=== PATIENT | male | born 1955 | race Caucasian/White ===

== ENCOUNTER 2020-01-17 18:19 | Outpatient (REF) | payer OTHER, SELFPAY ==
[2020-01-17 22:18] LABS: ALT 21 U/L (16-63); AST 17 U/L (15-37); Albumin 4.2 g/dL (3.4-5.0); Alkaline Phosphatase 93 U/L (46-116); Anion Gap 8.3 mmol/L (3-11); BUN 26 mg/dL (7-18); Bilirubin, Total 0.4 mg/dL (0.2-1.0); CO2 26.7 mmol/L (21.0-32.0); CREATININE 1.22 mg/dL (0.70-1.30); Calcium 9.6 mg/dL (8.5-10.1); Chloride 101 mmol/L (98-107); Cholesterol 268 mg/dL (<200); Estimated GFR 59.62 (mL/min/1.73m2); Glucose 87 mg/dL (74-106); Potassium 4.2 mmol/L (3.5-5.1); Sodium 136 mmol/L (136-145); TSH (W/Ref FT4) 2.86 uIU/mL (0.36-3.74); Total Protein 7.2 g/dL (6.4-8.2); Triglyceride 277 mg/dL (<150); Vitamin B12 795 pg/mL (193-986)
[2020-01-17 22:36] LABS: Calculated LDL 165 mg/dL (<100); HDL Cholesterol 48 mg/dL (40-60)
== END 2020-01-17 18:39 ==
LOC: NCHCN 18:19
PROVIDERS: PCP Nurse Practitioner Family; Visit Provider Nurse Practitioner Family
DX: K21.9 Gastro-esophageal reflux disease without esophagitis (principal); E83.52 Hypercalcemia; I10 Essential (primary) hypertension; E78.5 Hyperlipidemia, unspecified; N40.1 Benign prostatic hyperplasia with lower urinary tract symptoms; M54.5 Low back pain; L40.9 Psoriasis, unspecified; N13.8 Other obstructive and reflux uropathy
CPT/HCPCS: 80053; 80061; 82607; 83735; 84443

== ENCOUNTER 2020-01-30 00:28 | Outpatient (CLI) | payer OTHER, SELFPAY ==
--- NOTE | 2020-01-30 | DI.RAD_ITS ---
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 COMPARISON: No exams were available for comparison FINDINGS: MEDIASTINUM: Normal. HEART: Normal. PULMONARY VASCULATURE: Normal. LUNGS: Clear. PLEURAL SPACE: No pleural effusion or pneumothorax. BONE:Within normal limits for the patient's age. OTHER FINDINGS:Normal. IMPRESSION: No acute pulmonary findings. DATA REPOSITORY: RADIATION DOSE DELIVERED:
== END 2020-01-30 00:48 ==
PROVIDERS: PCP Nurse Practitioner Family; Visit Provider Nurse Practitioner Family
DX: D86.0 Sarcoidosis of lung (principal); Z79.52 Long term (current) use of systemic steroids
CPT/HCPCS: 71046

== ENCOUNTER 2020-03-07 09:08 | Outpatient (REF) | payer OTHER, SELFPAY ==
[2020-03-07 22:57] LABS: ALT 25 U/L (16-63); AST 17 U/L (15-37); Albumin 3.9 g/dL (3.4-5.0); Alkaline Phosphatase 85 U/L (46-116); Anion Gap 9.1 mmol/L (3-11); BUN 23 mg/dL (7-18); Bilirubin, Total 0.4 mg/dL (0.2-1.0); CO2 26.9 mmol/L (21.0-32.0); CREATININE 1.33 mg/dL (0.70-1.30); Calcium 8.9 mg/dL (8.5-10.1); Calculated LDL 121 mg/dL (<100); Chloride 106 mmol/L (98-107); Cholesterol 182 mg/dL (<200); Glucose 97 mg/dL (74-106); HDL Cholesterol 42 mg/dL (40-60); Potassium 4.5 mmol/L (3.5-5.1); Sodium 142 mmol/L (136-145); Total Protein 6.7 g/dL (6.4-8.2); Triglyceride 99 mg/dL (<150)
== END 2020-03-07 09:28 ==
LOC: NCHCN 09:08
PROVIDERS: PCP Nurse Practitioner Family; Visit Provider Nurse Practitioner Family
DX: E78.5 Hyperlipidemia, unspecified (principal); I10 Essential (primary) hypertension; E83.52 Hypercalcemia
CPT/HCPCS: 80053; 80061

== ENCOUNTER 2020-03-29 01:15 | Outpatient (CLI) | payer OTHER, SELFPAY ==
--- NOTE | 2020-03-29 | DI.DEXA_ITS ---
EXAM: XR DEXA BONE DENSITY W/WO CARI CLINICAL HISTORY: SARCOIDOSIS,D86.0,AS400 ANALYST,Z79.51,SCREENING FOR OSTEOPOROSIS TECHNIQUE: COMPARISON: No exams were available for comparison FINDINGS: DEXA scan was performed according to the usual protocol. Please see the accompanying data sheets. Findings for lumbar spine scanning are T-score -0.9. Findings for left hip scanning are T-score -0.1 with left femoral neck T-score -1.3. Findings for left forearm scanning are T-score -2.1. IMPRESSION: Findings consistent with osteopenia according to the WHO criteria. The lateral vertebral scanogram shows no evidence of a vertebral compression fracture. RADIATION DOSE DELIVERED: Total DLP
== END 2020-03-29 01:35 ==
PROVIDERS: PCP Nurse Practitioner Family; Visit Provider Nurse Practitioner Family
DX: M85.89 Other specified disorders of bone density and structure, multiple sites (principal); D86.0 Sarcoidosis of lung; Z79.51 Long term (current) use of inhaled steroids
CPT/HCPCS: 77080

== ENCOUNTER 2020-04-19 16:03 | Outpatient (REF) | payer OTHER, SELFPAY ==
[2020-04-19 14:04] LABS: Anion Gap 11.8 mmol/L (3-11); BUN 25 mg/dL (7-18); CO2 25.2 mmol/L (21.0-32.0); CREATININE 1.2 mg/dL (0.70-1.30); Calcium 9.6 mg/dL (8.5-10.1); Chloride 105 mmol/L (98-107); Glucose 105 mg/dL (74-106); Potassium 4.1 mmol/L (3.5-5.1); Sodium 142 mmol/L (136-145)
== END 2020-04-19 16:04 | disposition home or self-care (01) ==
LOC: NCHCN 16:03
PROVIDERS: PCP Nurse Practitioner Family; Visit Provider Nurse Practitioner Family
DX: M85.88 Other specified disorders of bone density and structure, other site (principal); K21.9 Gastro-esophageal reflux disease without esophagitis; E83.52 Hypercalcemia; I12.9 Hypertensive chronic kidney disease with stage 1 through stage 4 chronic kidney disease, or unspecified chronic kidney disease; N18.2 Chronic kidney disease, stage 2 (mild); M54.5 Low back pain; E78.5 Hyperlipidemia, unspecified; D86.0 Sarcoidosis of lung
CPT/HCPCS: 80048

== ENCOUNTER 2020-05-03 00:55 | Outpatient (CLI) | payer OTHER, SELFPAY ==
--- NOTE | 2020-05-03 10:35 | DI.MRI_ITS ---
EXAM: MR LUMBAR SPINE WO CLINICAL HISTORY: LOW BACK PAIN,M54.5,SCIATICA,M54.30. TECHNIQUE: Multiplanar multisequence MRI of the Lumbar spine was performed. COMPARISON: No exams were available for comparison FINDINGS: Five lumbar vertebrae are presumed. Conus medullaris is at normal level. There is no evidence of conus mass nor subjacent clumping of in trathecal nerve roots to suggest arachnoiditis. The distal thecal sac appears unremarkable.There is no evidence of Tarlov intrasacral cysts nor other significant findings within the sacral canal Bones:There are no fractures nor ominous osseous lesions in the lumbar vertebral bodies and visualize d sacrum. There are multiple benign intraosseous hemangiomas evident in numerous vertebral bodies. There are no lytic osseous lesions. With respect to the individual levels... T12-L1: Unremarkable L1-2: Normal disc height and signal. Mild Schmorl's node invagination noted in the inferior endplate of L1, not associated with bone edema. No disc herniation nor central canal stenosis.No foraminal s tenosis L2-3: Significant decreased disc height and small anterior osteophytes. Posteriorly there is mild sy mmetrical annular bulging without a dominant disc herniation. The annular bulging slightly flattens the anterior aspect of the thecal sac but there is no prominent central canal stenosis. Also no sign ificant foraminal stenosis, this despite the fact that the annular bulging extends into the floor of the exiting neural foramina bilaterally.There is no significant facet arthropathy at this level. No significant ligamentum flavum hypertrophy. L3-4: Normal disc height. However, there is also broad annular bulging evident at this level which i s not associated with central spinal canal stenosis. The bulging annulus extends into the floor of t he exiting left neural foramen at this level resulting in mild foraminal stenosis. There is less bul ging into the floor of the exiting right neural foramen and there is no significant right-sided jasper inal stenosis at this level. Mild degenerative facet joint changes. L4-5: Minimal decreased disc height. Relatively preserved disc hydration signal. There is annular b ulging also evident at this level, and although there is no prominent central canal stenosis, there i s significant left-sided foraminal stenosis at this level due to asymmetric bulging of the annulus in to the exiting left neural foramen +asymmetric facet arthropathy on the left side. No significant li gamentum flavum mitral tree at this level. L5-S1: Preserved disc height and signal. There is relatively symmetrical annular bulging, most promi nent central subligamentous which contacts the thecal sac but there is no true central spinal canal s tenosis at this level. There is mild narrowing of the exiting left neural foramen and moderate narro wing of the exiting right neural foramen at this level, this related to degenerative facet joint membreno ges. Soft tissues: paraspinal soft tissues appear unremarkable. IMPRESSION: 1. Findings as described individual level above. 2. The most significant findings appear to be foraminal stenosis at the L4-5 and L5-S1 levels. At th e L4-5 level the foraminal stenosis is asymmetric-more prominent on the left side. At L5-S1 level th e foraminal stenosis is slightly more prominent on the right side. There is no true central spinal c anal stenosis in the lumbosacral spine. 3. There are multiple benign intraosseous hemangiomas in all of the lumbar vertebrae. However, there are no ominous lytic osseous lesions evident. DATA REPOSITORY:
== END 2020-05-03 00:56 ==
LOC: DI 00:55
PROVIDERS: PCP Nurse Practitioner Family; Visit Provider Nurse Practitioner Family
DX: M54.40 Lumbago with sciatica, unspecified side (principal); M99.73 Connective tissue and disc stenosis of intervertebral foramina of lumbar region
CPT/HCPCS: 72148

== ENCOUNTER 2020-07-10 14:56 | Outpatient (CLI) | payer OTHER, SELFPAY ==
--- NOTE | 2020-07-10 06:00 | DI.RAD_ITS ---
EXAM: XR PAIN CLINIC LUMBAR SP 2V CLINICAL HISTORY: Dx:Lumbar Spondylosis TECHNIQUE: 2D and realtime digital imaging was performed. Radiologist not present. CONTRAST MATERIAL: None. COMPARISON: No exams were available for comparison FINDINGS: Fluoroscopy was provided for pain management therapy. Images reveal placement of right-side needles L4-5-S1 levels for medial branch blocks. Please refer to procedure report or details. Fluoro time: 54 Cumulative dose: Ka,r=15.63 mGy IMPRESSION: RADIATION DOSE DELIVERED:
[2020-07-10 15:08] VITALS: BP 137/87; PULSE 74; RESP 16; TEMP 36.9; O2SAT 98
--- NOTE | 2020-07-10 15:43 | PDOC.PAIN_ITS ---
Pain Clinic Procedure Note Procedure Note Procedure Note: Lumbar/Sacral Medial Branch Blocks HILARIO GARCIA has been referred to the [facility] for lumbar/sacral medial branch blocks. Pre-operative diagnosis: lumbar spondylosis Post-operative diagnosis: same as above COMMENTS: patient has predominantly right sided lowb back pain that is worse with physical activity. He works in [employer] and notes bending and twisting of his back aggravates his symptoms. He reports average pain level to be at least 5-6 out of 10 and impairs function. He was evaluated by Ms Kassie Aguilar APRN in clinic and referred for diagnostic right sided lumbar medial branch nerve block. Patient was interviewed and the medical record reviewed. There were no medical, pharmacologic, radiographic or other structural contraindications to attempting fluoroscopically guided local anesthetic lumbar/sacral medial branch blocks. Risks and expected side effects as well as potential benefit of the procedure were reviewed and voiced concerns addressed. The printed consent form was signed and witnessed. Standard time-out procedure was performed. Patient was placed in the prone position on the fluoroscopy table and automated blood pressure cuff and pulse oximeter applied. The skin entry points for ap proaching the anatomic target points of the segmental medial branches of right L3, L4, L5-DR were identified with anfluoroscopy and marked. Following thorough Chlorhexadine preparation of the skin and draping and 1% lidocaine infiltration of the skin entry points and subcutaneous tissues, a 22 gauge spinal needle was placed under fluoroscopic guidance down on to the target point for each respective segmental medial branch.Position was confirmed in A/P, oblique and lateral views with 0.25ml of omnipaque 240. Then using this method 0.5ml 0.5% Bupivocaine was injected. Vital signs were stable throughout the procedure and were as recorded in the docflowsheet by the nursing staff. Follow up plans and appointments were discussed and was instructed to keep careful note of how the usual pain was modified by these injections. Specifically was asked to keep a pain diary for the next 24 hours using a numeric pain scale of 0-10 and report these results at the follow-up visit. Post procedure instruction was given as documented in the nursing documentation and having met discharge criteria. Patient was discharged from the [facility]. Based on the medial branches blocked today, if the patient has adequate relief and we are able to proceed to radiofrequency ablation, the treatment should result in the denervation of the right L4/5 and L5/S1 facets. We would expect to denervate a total of 2 facets during the radiofrequency ablation. COMMENTS: patient reports pre-procedure VAS score 5/10 and post-procedure pain level to be 0 out of 10. I jose alejandro performed the entire procedure. Juan Zelaya MD Pain Management CC: Debra Jordan
[2020-07-10 15:58] VITALS: BP 133/72; PULSE 68; RESP 16; O2SAT 96
[2020-07-10] MEDS: Omnipaque 240 MG/ML 50 ML BTL IJ (15:59)
[2020-07-10] MEDS: Bupivacaine 0.5% Pres-Free 10 ML VIAL IJ (15:59)
== END 2020-07-10 14:57 | disposition home or self-care (01) ==
LOC: PC 14:57
PROVIDERS: PCP Nurse Practitioner Family; Visit Provider Internal Medicine
DX: M47.816 Spondylosis without myelopathy or radiculopathy, lumbar region (principal)
CPT/HCPCS: 64493; 64494; 72100; Q9967

== ENCOUNTER 2020-08-07 14:15 | Outpatient (CLI) | payer OTHER, SELFPAY ==
[2020-08-07 14:19] VITALS: BP 122/73; PULSE 74; RESP 17; TEMP 36.6; O2SAT 97
--- NOTE | 2020-08-07 15:12 | DI.RAD_ITS ---
Exam(s) XR PAIN CLINIC LUMBAR SP 2V EXAM: XR PAIN CLINIC LUMBAR SP 2V CLINICAL HISTORY: Dx:Lumbar Spondylosis. TECHNIQUE: Fluoroscopy was provided for the referring physician for guidance with performing injecti on procedure. COMPARISON: No exams were available for comparison FINDINGS: Please see procedure note for details. RADIATION DOSE DELIVERED: ira Perla=9.68 mGy
[2020-08-07] MEDS: Omnipaque 240 MG/ML 50 ML BTL IJ (15:16)
[2020-08-07] MEDS: Lidocaine 2% Pres-Free 5 ML VIAL IJ (15:16)
[2020-08-07 15:17] VITALS: BP 148/77; PULSE 75; RESP 14; O2SAT 95
--- NOTE | 2020-08-07 15:20 | PDOC.PAIN_ITS ---
Pain Clinic Procedure Note Procedure Note Procedure Note: Lumbar/Sacral Medial Branch Blocks HILARIO GARCIA has been referred to the [facility] for lumbar/sacral medial branch blocks. Pre-operative diagnosis: lumbar spondylosis Post-operative diagnosis: same as above COMMENTS: patient has predominantly right sided lowb back pain that is worse with physical activity. He works in [employer] and notes bending and twisting of his back aggravates his symptoms. He reports average pain level to be at least 6 out of 10 and impairs function. Patient was interviewed and the medical record reviewed. There were no medical, pharmacologic, radiographic or other structural contraindications to attempting fluoroscopically guided local anesthetic lumbar/sacral medial branch blocks. Risks and expected side effects as well as potential benefit of the procedure were reviewed and voiced concerns addressed. The printed consent form was signed and witnessed. Standard time-out procedure was performed. Patient was placed in the prone position on the fluoroscopy table and automated blood pressure cuff and pulse oximeter applied. The skin entry points for approaching the anatomic target points of the segmental medial branches of right L3, L4, L5-DR were identified with anfluoroscopy and marked. Following thorough Chlorhexadine preparation of the skin and draping and 1% lidocaine infiltration of the skin entry points and subcutaneous tissues, a 22 gauge spinal needle was placed under fluoroscopic guidance down on to the target point for each respective segmental medial branch.Position was confirmed in A/P, oblique and lateral views with 0.25ml of omnipaque 240. Then using this method 0.5ml 1% lidociane was injected. Vital signs were stable throughout the procedure and were as recorded in the docflowsheet by the nursing staff. Follow up plans and appointments were discussed and was instructed to keep careful note of how the usual pain was modified by these injections. Specifically was asked to keep a pain diary for the next 24 hours using a nume stephanie pain scale of 0-10 and report these results at the follow-up visit. Post procedure instruction was given as documented in the nursing documentation and having met discharge criteria. Patient was discharged from the [facility]. Based on the medial branches blocked today, if the patient has adequate relief and we are able to proceed to radiofrequency ablation, the treatment should result in the denervation of the right L4/5 and L5/S1 facets. We would expect to denervate a total of 2 facets during the radiofrequency ablation. COMMENTS: patient reports pre-procedure VAS score 6/10 and post-procedure pain level to be 0 out of 10. Darcie blount performed the entire procedure. Juan Zelaya MD Pain Management CC: Debra Jordan
== END 2020-08-07 14:16 | disposition home or self-care (01) ==
LOC: PC 14:16
PROVIDERS: PCP Nurse Practitioner Family; Visit Provider Internal Medicine
DX: M47.816 Spondylosis without myelopathy or radiculopathy, lumbar region (principal)
CPT/HCPCS: 64493; 64494; 72100; Q9967

== ENCOUNTER 2020-09-11 14:28 | Outpatient (CLI) | payer OTHER, SELFPAY ==
--- NOTE | 2020-09-11 06:00 | DI.RAD_ITS ---
Exam(s) XR PAIN CLINIC LUMBAR SP 2V EXAM: XR PAIN CLINIC LUMBAR SP 2V CLINICAL HISTORY: Dx: Lumbar Spondylosis TECHNIQUE: 2D and realtime digital imaging was performed. Radiologist not present. CONTRAST MATERIAL: None. COMPARISON: No exams were available for comparison FINDINGS: Fluoroscopy was provided for pain management therapy. Please refer to the procedure report for comple te details. There are no submitted images. Cumulative dose: Ka,r=14.45 mGy IMPRESSION: RADIATION DOSE DELIVERED:
[2020-09-11 15:06] VITALS: BP 142/89; PULSE 76; RESP 16; TEMP 36.8; O2SAT 98
--- NOTE | 2020-09-11 15:31 | PDOC.PAIN ---
Pain Clinic Procedure Note Procedure Note Procedure Note: Right Lumbar Radiofrequency with Coolief Machine PROCEDURE NOTE Date of Service: September 11, 2020 Patient: HILARIO GARCIA Provider: Juan Zelaya MD Pre Operative Diagnosis: lumbar spondylosis Post Operative Diagnosis: same as above PROCEDURE: Radiofrequency Ablation of medial branches - Right L3, L4, L5-DR HILARIO GARCIA was brought into the fluoroscopy suite and positioned into the prone position on the fluoroscopy table and allowed to adjust to a position of comfort. A grounding pad was placed on the left thigh. The lumbar region was widely prepped with a chloraprep solution, allowed to air dry and draped in standard sterile surgical fashion. Local anesthesia was provided by 10mL of 1% lidocaine delivered with a 25g needle. A 17g 100mm radiofrequency introducer needle was placed to the planned anatomic targets guided with intermittent fluoroscopy with a perpendicular approach to terminally place at the junction of the superior articular process and the transverse process of the right L3, L4, L5-DR and the base of the sacral ala on the right for the L5 medial branch nerve. The stylets were removed and radiofrequency probes with a 4mm active tip were then inserted. Needle tip position of the probes was verified in the AP, oblique, and lateral views. At each site, the medial branch nerve was stimulated at 2 Hz to a maximum 1-2 volts determined to finalize safe needle and electrode placement. The patient was awake and responsive during this portion of the procedure. Each target was anesthetized with 1 mL of 2% lidocaine for anesthesia for lesioning and then each target was lesioned at 80 degrees Celsius for 2 minutes and 30 seconds. Tissue impedences were noted to be between 250 and 500 Ohms. Electrodes and needles were then removed and bandages placed over the needle placement sites, the patient then returned to the supine position on a stretcher and transported to the recovery room without hemodynamic, neurologic, or allergic reactions. Fluoroscopic images were printed for hard copy recording and digitally archived. POST PROCEDURE EVALUATION: IMPRESSION: 1. patient tolerated procedure well 2. received 1mg of IV versed and 25mcg of IV fentanyl 3. this will result in denervation of right L4/5 and L5/S1 facets 4. total of 2 facets were treated Follow up plans and appointments were discussed with the HILARIO . Post procedure instruction was given as documented in nursing documentation and having met discharge criteria, HILARIO was discharged from the [facility]. COMMENTS: No complications. F/U with our office as needed. I personally performed this entire procedure. Juan Zelaya MD Attending Physician
[2020-09-11] MEDS: Lactated Ringers 1,000 ML 80 ML IV (15:44)
[2020-09-11] MEDS: fentaNYL 100 MCG/2 ML VIAL IVP (15:52)
[2020-09-11] MEDS: Midazolam 2 MG/2 ML VIAL IVP (15:53)
[2020-09-11 16:11] VITALS: BP 143/81; PULSE 69; RESP 18; O2SAT 95
[2020-09-11] MEDS: Bupivacaine 0.5% Pres-Free 10 ML VIAL IJ (16:33)
[2020-09-11] MEDS: Lidocaine 1% Pres-Free 5 ML VIAL IJ (16:35)
[2020-09-11] MEDS: Lidocaine 2% Pres-Free 5 ML VIAL IJ (16:36)
[2020-09-11] MEDS: methylPREDNISolone ACETATE 40 MG/ML VIAL IJ (16:36)
== END 2020-09-11 14:29 | disposition home or self-care (01) ==
LOC: PC 14:29
PROVIDERS: PCP Nurse Practitioner Family; Visit Provider Internal Medicine
DX: M47.816 Spondylosis without myelopathy or radiculopathy, lumbar region (principal)
CPT/HCPCS: 64635; 64636; 72100; J1030; J2250; J3010

== ENCOUNTER 2020-09-21 09:20 | Outpatient (CLI) | payer OTHER, SELFPAY ==
--- NOTE | 2020-09-21 08:30 | DI.RAD_ITS ---
Exam(s) XR KNEE LT 3V AP,LAT,ANGIE EXAM: XR KNEE LT 3V AP,LAT,ANGIE CLINICAL HISTORY: knee pain. TECHNIQUE: 2D digital imaging was performed. COMPARISON: No exams were available for comparison FINDINGS: BONES: No acute fracture is present. No bony destructive lesion is seen. Minimal periarticular spurr ing. JOINTS: The knee is normally aligned. No joint effusion is seen. No significant joint space narrowi ng. SOFT TISSUE: Normal. IMPRESSION: Minimal degenerative changes. DATA REPOSITORY: RADIATION DOSE DELIVERED:
--- NOTE | 2020-09-21 08:30 | DI.RAD_ITS ---
Exam(s) XR KNEE RT 3V AP,LAT,ANGIE EXAM: XR KNEE RT 3V AP,LAT,ANGIE CLINICAL HISTORY: knee pain. TECHNIQUE: 2D digital imaging was performed. COMPARISON: CR XR KNEE LT 3V AP,LAT,ANGIE from 09/21/2020 FINDINGS: BONES: No acute fracture is present. No bony destructive lesion is seen. JOINTS: The knee is normally aligned. No joint effusion is seen. There is mild spurring at the articu lar aspect of the patella. No significant joint space narrowing. SOFT TISSUE: Normal. IMPRESSION: Mild degenerative changes. DATA REPOSITORY: RADIATION DOSE DELIVERED:
== END 2020-09-21 09:21 | disposition home or self-care (01) ==
LOC: DIORS 09:20
PROVIDERS: PCP Nurse Practitioner Family; Referring Provider Nurse Practitioner Family; Visit Provider Student in an Organized Health Care Education/Training Program
DX: M25.561 Pain in right knee (principal); M17.12 Unilateral primary osteoarthritis, left knee; M17.11 Unilateral primary osteoarthritis, right knee; M25.562 Pain in left knee
CPT/HCPCS: 73562; 99203

== ENCOUNTER 2021-01-21 10:42 | Outpatient (REF) | payer MEDICARE, SELFPAY ==
[2021-01-21 16:59] LABS: ALT 28 U/L (16-63); AST 15 U/L (15-37); Albumin 3.9 g/dL (3.4-5.0); Alkaline Phosphatase 100 U/L (46-116); Anion Gap 8.2 mmol/L (3-11); BUN 23 mg/dL (7-18); Bilirubin, Total 0.4 mg/dL (0.2-1.0); CO2 29.8 mmol/L (21.0-32.0); CREATININE 1.2 mg/dL (0.70-1.30); Calcium 9.3 mg/dL (8.5-10.1); Chloride 107 mmol/L (98-107); Glucose 90 mg/dL (74-106); Potassium 5.3 mmol/L (3.5-5.1); Sodium 145 mmol/L (136-145); Total Protein 6.9 g/dL (6.4-8.2); Vitamin B12 904 pg/mL (193-986)
[2021-01-21 22:37] LABS: Bilirubin Negative (Negative); Blood Trace-intact (Negative); Clarity Clear (Clear); Glucose Negative (Negative); Ketones Negative (Negative); Leukocyte Esterase Negative (Negative); Nitrite Negative (Negative); Specific Gravity 1.025 (1.005-1.025); Urobilinogen 0.2 EU/dL (Up TO 0.2)
[2021-01-21 22:48] LABS: COMMENT (LAB VIEW ONLY) 119.41 mg/dL; Microalb ug/mg Crea 8.7 ug/mg Cr
[2021-01-21 22:52] LABS: Bacteria Rare HPF (Negative); C & S Indicated? No; Casts Negative LPF (Negative); Crystals Negative HPF (Negative); Epithelial Cells Rare HPF (Negative); Mucus Negative (Negative); WBC 0-2 HPF (0-5)
[2021-01-23 08:53] LABS: Calcium (Random Urine) 6.8 mg/dL (See Note)
== END 2021-01-21 10:43 | disposition home or self-care (01) ==
LOC: NCHCN 10:42
PROVIDERS: PCP Nurse Practitioner Family; Visit Provider Nurse Practitioner Family
DX: N18.2 Chronic kidney disease, stage 2 (mild) (principal); N20.9 Urinary calculus, unspecified; I10 Essential (primary) hypertension; E78.5 Hyperlipidemia, unspecified; K21.9 Gastro-esophageal reflux disease without esophagitis; M85.88 Other specified disorders of bone density and structure, other site; I26.99 Other pulmonary embolism without acute cor pulmonale
CPT/HCPCS: 80053; 81003; 81015; 82043; 82340; 82570; 82607; 83735

== ENCOUNTER 2021-02-12 11:15 | Outpatient (REF) | payer MEDICARE, SELFPAY ==
[2021-02-12 16:40] LABS: Potassium 4.7 mmol/L (3.5-5.1)
== END 2021-02-12 11:16 | disposition home or self-care (01) ==
LOC: NCHCN 11:15
PROVIDERS: PCP Nurse Practitioner Family; Visit Provider Nurse Practitioner Family
DX: E87.5 Hyperkalemia (principal)
CPT/HCPCS: 84132

== ENCOUNTER 2022-02-04 18:34 | Outpatient (REF) | payer MEDICARE, SELFPAY ==
[2022-02-04 15:27] LABS: Anion Gap 8.1 mmol/L (3-11); BUN 21 mg/dL (7-18); CO2 27.9 mmol/L (21.0-32.0); CREATININE 1.2 mg/dL (0.70-1.30); Calcium 9.5 mg/dL (8.5-10.1); Calculated LDL 195 mg/dL (<100); Chloride 103 mmol/L (98-107); Cholesterol 273 mg/dL (<200); Estimated GFR 66.28 (mL/min/1.73m2); Glucose 91 mg/dL (74-106); HDL Cholesterol 50 mg/dL (40-60); Potassium 4.2 mmol/L (3.5-5.1); Sodium 139 mmol/L (136-145); Triglyceride 144 mg/dL (<150)
[2022-02-04 17:19] LABS: Vitamin D 25 Total 57.5 ng/mL (30-100)
== END 2022-02-04 18:35 | disposition home or self-care (01) ==
LOC: NCHCN 18:34
PROVIDERS: PCP Nurse Practitioner Family; Visit Provider Nurse Practitioner Family
DX: E66.9 Obesity, unspecified (principal); M85.80 Other specified disorders of bone density and structure, unspecified site; K21.9 Gastro-esophageal reflux disease without esophagitis; N18.2 Chronic kidney disease, stage 2 (mild); E78.5 Hyperlipidemia, unspecified; M85.88 Other specified disorders of bone density and structure, other site; I10 Essential (primary) hypertension
CPT/HCPCS: 80048; 80061; 82306

== ENCOUNTER 2022-04-01 09:26 | Outpatient (REF) | payer MEDICARE, SELFPAY ==
[2022-04-01 15:27] LABS: Calculated LDL 129 mg/dL (<100); Cholesterol 203 mg/dL (<200); HDL Cholesterol 53 mg/dL (40-60); Triglyceride 107 mg/dL (<150)
== END 2022-04-01 09:27 | disposition home or self-care (01) ==
LOC: NCHCN 09:26
PROVIDERS: PCP Nurse Practitioner Family; Visit Provider Nurse Practitioner Family
DX: I10 Essential (primary) hypertension (principal); E78.5 Hyperlipidemia, unspecified; N18.2 Chronic kidney disease, stage 2 (mild)
CPT/HCPCS: 80061

== ENCOUNTER 2022-04-04 10:36 | Outpatient (REF) | payer MEDICARE, SELFPAY ==
[2022-04-04 14:43] LABS: ALT 22 U/L (16-63); AST 18 U/L (15-37); Albumin 3.9 g/dL (3.4-5.0); Alkaline Phosphatase 92 U/L (46-116); Anion Gap 8.9 mmol/L (3-11); BUN 24 mg/dL (7-18); Bilirubin, Total 0.6 mg/dL (0.2-1.0); CO2 28.1 mmol/L (21.0-32.0); CREATININE 1.2 mg/dL (0.70-1.30); Calcium 9.3 mg/dL (8.5-10.1); Chloride 106 mmol/L (98-107); Estimated GFR 65.87 (mL/min/1.73m2); Glucose 105 mg/dL (74-106); Potassium 4.4 mmol/L (3.5-5.1); Sodium 143 mmol/L (136-145); Total Protein 6.7 g/dL (6.4-8.2)
== END 2022-04-04 10:37 | disposition home or self-care (01) ==
LOC: NCHCN 10:36
PROVIDERS: PCP Nurse Practitioner Family; Visit Provider Nurse Practitioner Family
DX: I10 Essential (primary) hypertension (principal); E87.5 Hyperkalemia; E66.8 Other obesity
CPT/HCPCS: 80053

== ENCOUNTER 2023-02-02 12:45 | Outpatient (REF) | payer MEDICARE, SELFPAY ==
[2023-02-02 15:49] LABS: ALT 21 U/L (16-63); AST 17 U/L (15-37); Alkaline Phosphatase 91 U/L (46-116); Anion Gap 7.2 mmol/L (3-11); BUN 25 mg/dL (7-18); Bilirubin, Total 0.6 mg/dL (0.2-1.0); CO2 28.8 mmol/L (21.0-32.0); CREATININE 1.2 mg/dL (0.70-1.30); Calcium 10.2 mg/dL (8.5-10.1); Calculated LDL 158 mg/dL (<100); Chloride 103 mmol/L (98-107); Cholesterol 244 mg/dL (<200); Estimated GFR 65.87 (mL/min/1.73m2); Glucose 93 mg/dL (74-106); HDL Cholesterol 49 mg/dL (40-60); Potassium 4.5 mmol/L (3.5-5.1); Sodium 139 mmol/L (136-145); Total Protein 7.4 g/dL (6.4-8.2); Triglyceride 186 mg/dL (<150); Vitamin B12 535 pg/mL (193-986)
[2023-02-04 18:47] LABS: PSA, Screening 0.2 ng/mL (<=4.5)
== END 2023-02-02 12:46 | disposition home or self-care (01) ==
LOC: NCHCN 12:45
PROVIDERS: PCP Nurse Practitioner Family; Visit Provider Nurse Practitioner Family
DX: I10 Essential (primary) hypertension (principal); N40.1 Benign prostatic hyperplasia with lower urinary tract symptoms; E78.5 Hyperlipidemia, unspecified; K21.9 Gastro-esophageal reflux disease without esophagitis; Z12.5 Encounter for screening for malignant neoplasm of prostate
CPT/HCPCS: 80053; 80061; 84153; 82607; 83735

== ENCOUNTER 2023-03-17 14:37 | Outpatient (REF) | payer MEDICARE, SELFPAY ==
[2023-03-17 15:35] LABS: ALT 28 U/L (16-63); AST 16 U/L (15-37); Albumin 3.7 g/dL (3.4-5.0); Alkaline Phosphatase 93 U/L (46-116); Anion Gap 6.9 mmol/L (3-11); BUN 28 mg/dL (7-18); Bilirubin, Total 0.6 mg/dL (0.2-1.0); CO2 29.1 mmol/L (21.0-32.0); CREATININE 1.4 mg/dL (0.70-1.30); Calcium 9.6 mg/dL (8.5-10.1); Calculated LDL 155 mg/dL (<100); Chloride 104 mmol/L (98-107); Cholesterol 234 mg/dL (<200); Estimated GFR 54.41 (mL/min/1.73m2); Glucose 109 mg/dL (74-106); HDL Cholesterol 52 mg/dL (40-60); Potassium 4.6 mmol/L (3.5-5.1); Sodium 140 mmol/L (136-145); Total Protein 6.8 g/dL (6.4-8.2); Triglyceride 135 mg/dL (<150)
== END 2023-03-17 14:38 | disposition home or self-care (01) ==
LOC: NCHCN 14:37
PROVIDERS: PCP Nurse Practitioner Family; Visit Provider Nurse Practitioner Family
DX: I10 Essential (primary) hypertension (principal)
CPT/HCPCS: 80053; 80061

== ENCOUNTER → 2023-03-27 01:15 | Outpatient (CLI) | payer MEDICARE, SELFPAY ==
--- NOTE | 2023-03-27 11:02 | DI.RAD_ITS ---
Exam(s) XR WRIST LT COMPLETE EXAM: XR WRIST LT COMPLETE CLINICAL HISTORY: PAIN LEFT WRIST M25.532. TECHNIQUE: 2D digital imaging was performed of the left wrist. Three images were obtained. PA, obl ique and lateral views were obtained. COMPARISON: No exams were available for comparison FINDINGS: BONES: No acute fracture is present. No bony destructive lesion is seen. JOINTS: The carpal bones are normally aligned. Moderate joint space narrowing and osteophytes are see n at the 1st CMC joint. The joint spaces are otherwise well maintained. SOFT TISSUE: Normal. IMPRESSION: Moderate degenerative changes at the 1st CMC joint. DATA REPOSITORY: RADIATION DOSE DELIVERED:
== END ==
PROVIDERS: PCP Nurse Practitioner Family; Visit Provider Family Medicine
DX: M18.2 Bilateral post-traumatic osteoarthritis of first carpometacarpal joints (principal)
CPT/HCPCS: 73110

== ENCOUNTER → 2023-04-20 08:51 | Outpatient (BNVA) | payer MEDICARE, SELFPAY | PROVIDERS: PCP Nurse Practitioner Family; Referring Provider Nurse Practitioner Family; Visit Provider Podiatrist | DX: B35.1 Tinea unguium | CPT/HCPCS: 99213 ==

== ENCOUNTER 2023-06-29 09:50 | Emergency (ER) | payer MEDICARE, SELFPAY ==
--- NOTE | 2023-06-29 10:15 | RT.EKG_ITS ---
APPROVED REPORT Exam: Resting ECG Reason for Exam: sob Patient Location: E HR:54 bpm ECG Measurements Heart Rate 54 AXIS NM 196 P 27 QRSd 98 QRS 0 QT 436 T 2 QTc 415 Conclusion Sinus bradycardia...rate< 60 Physician: no stemi, minimal inversions in III/avf. no prior for comparison
--- NOTE | 2023-06-29 10:15 | DI.CT_ITS ---
Exam(s) CT CHEST PE CTA EXAM: CT CHEST PE CTA CLINICAL HISTORY: sob, cough, on immunomodulators, Hx of PE. TECHNIQUE: Imaging Protocol: Axial CT angiography was performed with multi-slice acquisition and mu lti-planar and/or 3D reconstructions. CONTRAST MATERIAL: Intravenous: Omnipaque 350 contrast volume:100 mL COMPARISON: CT CHEST WITH CONTRAST from 12/01/2018 FINDINGS: Tracheobronchial tree: Patent where visualized. Pulmonary parenchyma: No consolidation or dominant measurable mass. No architectural distortion. Ther e is a 3 mm nodule in the posterior aspect of the right lower lobe (series 6, image 292). Pulmonary Arteries: No evidence of filling defect to suggest pulmonary emboli. Mediastinum and Kassie: No dominant adenopathy or fluid collection. The esophagus is unremarkable. Visualized thyroid gland: Unremarkable. Pleura: No effusion or pneumothorax. Heart: The heart is not dilated. Mild coronary artery calcification. No pericardial effusion. Aorta: Thoracic aorta non-dilated. No evidence of dissection. Atherosclerotic calcification is presen t. Upper abdomen: There is a stable simple cyst in the upper pole of the left kidney. No follow-up is recommended. Soft tissues: Unremarkable. Bones: Within normal limits for the patient's age. IMPRESSION: 1. No evidence of pulmonary embolism, thoracic aortic dissection or aneurysm. 2. 3 mm right lower lobe pulmonary nodule. 3. Single solid noncalcified nodules. ???Solid nodules smaller than 6 mm (those 5 mm or smaller) do n ot require routine follow-up in patients at low risk (grade 1C; strong recommendation, low- or very-l ow-quality evidence). (Filipe et al., 2017) Solid nodules smaller than 6 mm do not require routine follow-up in all patients with high clinical r isk; however, some nodules smaller than 6 mm with suspicious morphology, upper lobe location, or both may warrant follow-up at 12 months (grade 2A; weak recommendation, high-quality evidence). (Filipe et al., 2017) RADIATION DOSE DELIVERED: 423.52mGy.cm Total DLP DATA REPOSITORY: All CT scans at this facility are submitted to the National Radiology Data Registry (NRDR) Dose Index Registry (DIR) with the [employer] ([employer]). RADIATION OPTIMIZATION: All CT scans at this facility use at least one of these dose optimization te chniques: automated exposure control; mA and/or kV adjustment per patient size (includes targeted exa ms where dose is matched to clinical indication); or iterative reconstruction.
--- NOTE | 2023-06-29 10:16 | W.ED.GENAD ---
Discharge Plan Disposition Patient Disposition: Home Condition: Good Discharge Details Clinical Impression: Pulmonary nodule, RSV infection, Bronchitis Primary Care Provider: Debra Jordan ED Provider: Kevin Hernandez Home Meds and New Rx's Prescriptions: New azithromycin 250 mg tablet See Rx Instructions .ROUTE .COMPLEX Qty: 6 0RF Rx Instructions: For 250 mg dose pack: take 500 mg today (day 1), then 250 mg for 4 days (days 2-5) No Action cyanocobalamin (vitamin B-12) 1,000 mcg Tablet 1,000 mcg PO DAILY ketorolac [Acular] 0.5 % Drops 1 drp OPHTHALMIC (EYE) QID omeprazole 20 mg Capsule,Delayed Release(Dr/Ec) 20 mg PO DAILY dorzolamide-timolol [Cosopt] 22.3-6.8 mg/mL Drops 1 drp OPHTHALMIC (EYE) DIRECTED berberine-herbal comb no.18 Capsule 1 cap PO DAILY echinacea 125 mg Capsule 125 mg PO DAILY Ashwagandha-Sensoril 125 mg capsule 250 mg PO DAILY simvastatin 20 mg Tablet 20 mg PO HS nystatin 100,000 unit/gram Cream 1 applic TOPICAL BID lecithin 400 mg Capsule 400 mg PO DAILY [place] 3 Natural Fish Oil Conc Capsule 1,000 mg PO DAILY Stelara 45 mg/0.5 mL Syringe 45 mg SUBCUT DIRECTED Rx Instructions: Every 3 months lutein 20 mg Tablet 20 mg PO DAILY vitamin E mixed [Natural Vitamin E] 400 unit Capsule 400 unit PO DAILY Rx Instructions: 400 Units = 180mg brimonidine 0.2 % drops 1 drp ophthalmic (eye) BID Rx Instructions: administer approximately 8 hours apart CholestOff Complete 300-100 mg capsule 3 cap PO DAILY AM amino ac-vit [id number] Tablet 1 tab PO DAILY zinc gluconate 50 mg tablet 50 mg PO DAILY coenzyme Q10 100 mg capsule 100 mg PO DAILY acetylcysteine [NAC] 600 mg capsule 600 mg PO DAILY Echinacea purpurea extract 125 mg tablet 125 mg PO .QD Rx Instructions: administer with meals atenolol 25 mg tablet 25 mg PO DAILY Discharge Instructions Instructions: Acute Bronchitis (ED), Viral Syndrome (ED) Additional Instructions: At this time you have evidence of mild bronchitis, and you are also positive for respiratory syncytial virus. I do feel that there is an early component of infection that may be bacterial that needs treatment. Please take the azithromycin as directed. Please take the inhaler, 2 puffs every 12 hours for the next week. If you notice any worsening of your symptoms, or any new symptoms such as vomiting, diarrhea, fever, chills, shortness of breath, chest pain, numbness, weakness, or fainting , please return immediately to the emergency department for reevaluation. Please follow up with your primary care provider as soon as possible for reassessment and reevaluation. As always, it was a pleasure participating in your medical care today. Referrals: Debra Jordan [Primary Care Provider] - [facility] General Date/Time Provider Initiated Documentation: 06/29/23 09:53. HPI Narrative: 68-year-old male with a past medical history of sarcoidosis, who currently takes Stelara, previous history of pulmonary embolism not currently on anticoagulants, high cholesterol, who presents today for evaluation of cough and shortness of breath. Patient states that he has had 3 weeks of a mild cough, and mild upper respiratory symptoms over the last day or so. His cough is notably worsened over the last 4 days. It is worse when he lies flat at night. He denies any pleuritic chest pain, chest pain in general, or exertional dyspnea. He denies any calf tenderness. No recent procedures long flights or trips. No history of smoking or tobacco use. No other complaints at this time. No hemoptysis. Related Data Home Medications Medication Instructions Recorded Confirmed Ashwagandha-Sensoril 250 mg PO DAILY 06/08/20 06/29/23 berberine-herbal comb no.18 capsule 1 cap PO DAILY 06/08/20 06/29/23 cyanocobalamin (vitamin B-12) 1,000 mcg PO DAILY 06/08/20 06/29/23 1,000 mcg tablet dorzolamide 22.3 mg-timolol 6.8 1 drp ophthalmic (eye) DIRECTED 06/08/20 06/29/23 mg/mL eye drops (Cosopt) echinacea 125 mg capsule 125 mg PO DAILY 06/08/20 06/29/23 ketorolac 0.5 % eye drops (Acular) 1 drp ophthalmic (eye) QID 06/08/20 06/29/23 lecithin 400 mg capsule 400 mg PO DAILY 06/08/20 06/29/23 lutein 20 mg tablet 20 mg PO DAILY 06/08/20 06/29/23 nystatin 100,000 unit/gram topical 1 applic topical BID 06/08/20 06/29/23 cream omega-3 fatty acids 1,000 mg PO DAILY 06/08/20 06/29/23 omeprazole 20 mg capsule,delayed 20 mg PO DAILY 06/08/20 06/29/23 release simvastatin 20 mg tablet 20 mg PO HS 06/08/20 06/29/23 ustekinumab 45 mg/0.5 mL 45 mg subcut DIRECTED 06/08/20 06/29/23 subcutaneous syringe (Stelara) vitamin E mixed 400 unit capsule 400 unit PO DAILY 06/08/20 06/29/23 brimonidine 0.2 % eye drops 1 drp ophthalmic (eye) BID 06/20/20 06/29/23 Echinacea purpurea extract 125 mg 125 mg PO .QD 12/08/22 06/29/23 tablet acetylcysteine 600 mg capsule (NAC) 600 mg PO DAILY 12/08/22 06/29/23 amino ac-vit [id number] 1 tab PO DAILY 12/08/22 06/29/23 tablet coenzyme Q10 100 mg capsule 100 mg PO DAILY 12/08/22 06/29/23 phytosterol 300 mg-pantethine 100 3 cap PO DAILY AM 12/08/22 06/29/23 mg capsule (CholestOff Complete) zinc gluconate 50 mg tablet 50 mg PO DAILY 12/08/22 06/29/23 atenolol 25 mg tablet 25 mg PO DAILY 06/29/23 06/29/23 azithromycin 250 mg tablet See Rx Instructions PO .COMPLEX #6 06/29/23 tabs Previous Rx's Medication Instructions Recorded azithromycin 250 mg tablet See Rx Instructions PO .COMPLEX #6 06/29/23 tabs Allergies Allergy/AdvReac Type Severity Reaction Status Date / Time No Known Allergies Allergy Verified 06/29/23 10:17 Review of Systems All systems reviewed & are unremarkable except as noted in HPI and below Exam Narrative Exam Narrative: 1.Const: Well-nourished, Well-developed, appearing stated age 2.Eyes: PERRL, no conjunctival injection, and symmetrical lids. 3.ENT: Atraumatic external nose and ears. Moist MM. Neck: Symmetric, trachea midline, No thyromegaly. 4.CVS: +S1/S2, No murmurs or gallops. Peripheral pulses 2+ and equal in all extremities. Brisk capillary refill in all extremities. 5.RESP: Unlabored respiratory effort. Clear to auscultation bilaterally. No wheezes rales or rhonchi 6.GI: Soft, Nontender/Nondistended, No hepatosplenomegaly. No guarding or rebound. 7.MSK: Normocephalic/Atraumatic, Extremities w/o deformity or ttp No cyanosis or clubbing, Normal movement of all extremities 8.Skin: Warm, Dry. No rashes or lesions. 9.Neuro: billet examiner II-XII grossly intact. Sensation grossly intact, no focal neurologic deficits. 10.Psych: (AAO) x3. Appropriate mood and affect Medical Decision Making 68-year-old male with a past medical history of sarcoidosis, who currently takes Stelara, previous history of pulmonary embolism not currently on anticoagulants, high cholesterol, who presents today for evaluation of cough and shortness of breath. Patient states that he has had 3 weeks of a mild cough, and mild upper respiratory symptoms over the last day or so. His cough is notably worsened over the last 4 days. It is worse when he lies flat at night. He denies any pleuritic chest pain, chest pain in general, or exertional dyspnea. He denies any calf tenderness. No recent procedures long flights or trips. No history of smoking or tobacco use. No other complaints at this time. No hemoptysis. Exam demonstrates well-appearing male, lung sounds are clear. No calf tenderness, no pitting edema. Differential is high for potential infection versus pneumonia secondary to his immunomodulator use, however PE is on the differential as well. Will get a CTA for excellent lung visualization as well to rule out a blood clot, we will check for infection markers, will monitor closely and reassess. [address] scan shows few small pulmonary nodules, and some noncalcified nodules, patient does know that he has nodules and gets regular chest x-rays as well. No evidence of pulmonary embolism or large evidence of pneumonia. We recommended to the patient continued regular imaging for his lung nodules. Patient is RSV positive. I do suspect that a component of his symptoms are viral but also concerning for bronchitis. Will start him on azithromycin for concern for potential bacterial component on top of this especially with the longevity of the cough. Reflux is on the differential as well but less likely. Troponin normal and EKG benign. Will give a Symbicort inhaler to help reduce bronchospasm and pulmonary irritation. Patient will be discharged home. Discussed red flags for which to return. I have extensively reviewed the treatment plan and discharge instructions with the patient and their family. I have addressed all patient concerns at this time. The patient and family was made aware of what symptoms to monitor for that would warrant a return to the emergency department. Discussed the plan with the patient and family, they demonstrate verbal understanding and agreement with our assessment and plan at this time. The documentation in this chart was dictated using [employer] dictation software. Please excuse any dictation errors. CT CHEST PE CTA EXAM: CT CHEST PE CTA CLINICAL HISTORY: sob, cough, on immunomodulators, Hx of PE. TECHNIQUE: Imaging Protocol: Axial CT angiography was performed with multi-slice acquisition and multi-planar and/or 3D reconstructions. CONTRAST MATERIAL: Intravenous: Omnipaque 350 contrast volume:100 mL COMPARISON: CT CHEST WITH CONTRAST from 12/01/2018 FINDINGS: Tracheobronchial tree: Patent where visualized. Pulmonary parenchyma: No consolidation or dominant measurable mass. No architectural distortion. There is a 3 mm nodule in the posterior aspect of the right lower lobe (series 6, image 292). Pulmonary Arteries: No evidence of filling defect to suggest pulmonary emboli. Mediastinum and Kassie: No dominant adenopathy or fluid collection. The esophagus is unremarkable. Visualized thyroid gland: Unremarkable. Pleura: No effusion or pneumothorax. Heart: The heart is not dilated. Mild coronary artery calcification. No pericardial effusion. Aorta: Thoracic aorta non-dilated. No evidence of dissection. Atherosclerotic calcification is present. Upper abdomen: There is a stable simple cyst in the upper pole of the left kidney. No follow-up is recommended. Soft tissues: Unremarkable. Bones: Within normal limits for the patient's age. IMPRESSION: 1. No evidence of pulmonary embolism, thoracic aortic dissection or aneurysm. 2. 3 mm right lower lobe pulmonary nodule. 3. Single solid noncalcified nodules. ?Solid nodules smaller than 6 mm (those 5 mm or smaller) do not require routine follow-up in patients at low risk (grade 1C; strong recommendation, low- or [id number] evidence). (Filipe et al., 2017) Solid nodules smaller than 6 mm do not require routine follow-up in all patients with high clinical risk; however, some nodules smaller than 6 mm with suspicious morphology, upper lobe location, or both may warrant follow-up at 12 months (grade 2A; weak recommendation, high-quality evidence). (Filipe et al., 2017) RADIATION DOSE DELIVERED: 423.52mGy.cm Total DLP DATA REPOSITORY: All CT scans at this facility are submitted to the National Radiology Data Registry (NRDR) Dose Index Registry (DIR) with the [employer] (ACR). RADIATION OPTIMIZATION: All CT scans at this facility use at least one of these dose optimization techniques: automated exposure control; mA and/or kV adjustment per patient size (includes targeted exams where dose is matched to clinical indication); or iterative reconstruction. 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 Psoriasis Melanoma in situ Basal cell carcinoma Pruritus ani Disorder of tendon of right shoulder region History of colon polyps Pulmonary sarcoidosis Iridocyclitis Glaucoma Pulmonary embolism Urolith Labyrinthitis Sciatica Low back pain Hyperlipidemia BPH loc w urin obs/LUTS Chronic kidney disease, stage 2 (mild) Palpitations Essential hypertension Hearing loss Hypercalcemia GERD (gastroesophageal reflux disease) Long-term current use of steroids Osteopenia Surgical History Previous back surgery S/P carpal tunnel release Family History Mother Psoriasis Lung cancer smoker Father Diabetes Stroke CAD (coronary artery disease) Hypertension Hyperlipidemia Brother Chronic kidney disease (CKD) KIDNEY STONES. Social History Smoking/Tobacco Use Status: Never Smoking risk assessment performed?: Yes Alcohol Intake: current Alcohol Intake frequency: 0-2 drinks per day Alcohol type: hard liquor Drug use: Never Substance use type: does not use Household members: spouse Housing: house Number of Children: 0 current occupation: [employer] What type of physical activity do you participate in: walking and independent ambulation Do you feel safe at home: Yes Do you feel safe in your relationship?: Yes
[2023-06-29 10:18] VITALS: BP 151/87; PULSE 60; RESP 18; TEMP 37.1; O2SAT 98
[2023-06-29 11:06] LABS: BE (Venous) 4 mmol/L (-2-3); HCO3 (Venous) 29 mmol/L (23-28); O2 Sat (Venous) 67 %; TCO2 (Venous) 26 mmol/L (24-29); pCO2 (Venous) 50 mmHg (41-51); pH (Venous) 7.37 (7.31-7.41); pO2 (Venous) 35 mmHg
[2023-06-29 11:09] LABS: Lactate 0.8 mmol/L (0.6-1.4)
[2023-06-29 11:22] VITALS: BP 151/87; PULSE 60; RESP 18; TEMP 37.1; O2SAT 98
[2023-06-29 11:29] LABS: ALT 26 U/L (16-63); AST 20 U/L (15-37); Albumin 3.6 g/dL (3.4-5.0); Alkaline Phosphatase 92 U/L (46-116); Anion Gap 9.7 mmol/L (3-11); BUN 23 mg/dL (7-18); Bilirubin, Total 0.5 mg/dL (0.2-1.0); CO2 28.3 mmol/L (21.0-32.0); CREATININE 1.2 mg/dL (0.70-1.30); Calcium 9.2 mg/dL (8.5-10.1); Chloride 104 mmol/L (98-107); Estimated GFR 65.46 (mL/min/1.73m2); Glucose 97 mg/dL (74-106); Potassium 4.4 mmol/L (3.5-5.1); Sodium 142 mmol/L (136-145); Total Protein 6.5 g/dL (6.4-8.2); Troponin I < 50 ng/L (< or =60)
[2023-06-29 11:35] LABS: NT-proBNP 219 pg/mL (<300)
[2023-06-29] MEDS: Normal Saline - Diluent 50 ML VIAL IJ (11:50)
[2023-06-29] MEDS: Omnipaque 350 MG/ML 100 ML BTL IJ (11:50)
[2023-06-29] MEDS: Normal Saline Flush 10 ML SYR IVP (11:51)
[2023-06-29 12:00] LABS: COVID-19 PCR Negative (Negative); Influenza A PCR Negative (Negative); Influenza B PCR Negative (Negative)
[2023-06-29 12:08] LABS: Source Nasopharynx
[2023-06-29 12:10] LABS: RSV PCR Positive (Negative)
[2023-06-29] MEDS: Budesonide/Formoterol 160/4.5 6 GM 60 PUFF INH IH (13:02)
[2023-06-29] MEDS: Inhaler, Assist Device 1 EACH MC (13:02)
== END 2023-06-29 13:03 | disposition home or self-care (01) ==
PROVIDERS: Emergency Provider Student in an Organized Health Care Education/Training Program; PCP Nurse Practitioner Family
DX: J20.9 Acute bronchitis, unspecified (principal); R00.1 Bradycardia, unspecified; D86.0 Sarcoidosis of lung; R91.1 Solitary pulmonary nodule; I12.9 Hypertensive chronic kidney disease with stage 1 through stage 4 chronic kidney disease, or unspecified chronic kidney disease; N18.2 Chronic kidney disease, stage 2 (mild); E78.5 Hyperlipidemia, unspecified; Z11.52 Encounter for screening for COVID-19; Z79.620 Long term (current) use of immunosuppressive biologic; Z86.711 Personal history of pulmonary embolism
CPT/HCPCS: 71275; 80053; 82805; 87637; 93005; 99285; 83605; 83880; 84484; 93010; 99284; J3490

== ENCOUNTER → 2023-08-17 08:52 | Outpatient (BNVA) | payer MEDICARE, SELFPAY | PROVIDERS: PCP Nurse Practitioner Family; Referring Provider Nurse Practitioner Family; Visit Provider Podiatrist | DX: B35.1 Tinea unguium | CPT/HCPCS: 99214 ==

== ENCOUNTER 2023-09-29 18:39 | Outpatient (REF) | payer MEDICARE, SELFPAY ==
[2023-09-29 16:46] LABS: Anion Gap 7.5 mmol/L (3-11); BUN 31 mg/dL (7-18); CO2 27.5 mmol/L (21.0-32.0); CREATININE 1.5 mg/dL (0.70-1.30); Calcium 9.4 mg/dL (8.5-10.1); Calculated LDL 125 mg/dL (<100); Chloride 107 mmol/L (98-107); Cholesterol 191 mg/dL (<200); Estimated GFR 50.08 (mL/min/1.73m2); Glucose 96 mg/dL (74-106); HDL Cholesterol 49 mg/dL (40-60); Potassium 4.8 mmol/L (3.5-5.1); Sodium 142 mmol/L (136-145); Triglyceride 87 mg/dL (<150)
== END 2023-09-29 18:40 | disposition home or self-care (01) ==
LOC: NCHCN 18:39
PROVIDERS: PCP Nurse Practitioner Family; Visit Provider Nurse Practitioner Family
DX: I10 Essential (primary) hypertension (principal); E78.5 Hyperlipidemia, unspecified
CPT/HCPCS: 80048; 80061

== ENCOUNTER → 2023-10-08 00:40 | Outpatient (CLI) | payer MEDICARE, SELFPAY ==
--- NOTE | 2023-10-08 | DI.US_ITS ---
Exam(s) US RENAL EXAM: US RENAL CLINICAL HISTORY: UROLITHIASIS,N20.9. TECHNIQUE: Hernandez scale, color and spectral Doppler were used. COMPARISON: No priors for comparison. FINDINGS: Renal size in cm: Right: 9.7. Left: 11.7. Echogenicity: Normal. Hydronephrosis: There is marked left hydronephrosis. The left ureter is visualized into the pelvis. Cyst or mass: No. Nephrolithiasis: Bilateral echogenic foci are seen in the kidneys consistent with stones. Other findings: None. Bladder:Normal. Ureteral jets: Right: Visualized and unremarkable. Left: Visualized and unremarkable. Prevoid vol:71 cc Postvoid vol:0 cc Prostate: 15 cc Renal color flow: Symmetric and within normal limits. IMPRESSION: 1. Marked left hydroureter and hydronephrosis. Renal colic CT suggested for further evaluation. 2. Bilateral nephrolithiasis. DATA REPOSITORY:
== END ==
PROVIDERS: PCP Nurse Practitioner Family; Visit Provider Nurse Practitioner Family
DX: N20.9 Urinary calculus, unspecified (principal)
CPT/HCPCS: 76770

== ENCOUNTER → 2023-11-05 14:29 | Outpatient (BNVA) | payer MEDICARE, SELFPAY | PROVIDERS: PCP Nurse Practitioner Family; Referring Provider Nurse Practitioner Family; Visit Provider Urology | DX: N13.30 Unspecified hydronephrosis (principal); N20.0 Calculus of kidney | CPT/HCPCS: 99215 ==

== ENCOUNTER 2023-11-24 01:05 | Outpatient (CLI) | payer MEDICARE, SELFPAY ==
--- NOTE | 2023-11-24 08:32 | DI.CT_ITS ---
Exam(s) CT ABDOMEN PELVIS WO EXAM: CT ABDOMEN PELVIS WO CLINICAL HISTORY: ? left ureteral stone,HYDRONEPHROSIS,KIDNEY STONES,N20.0,N13.30. TECHNIQUE: Imaging Protocol: Axial computed tomography images with coronal and sagittal reformatted images were created and reviewed. Oral: / no COMPARISON: CT CT CHEST PE CTA from 06/29/2023 US US RENAL from 10/08/2023 FINDINGS: Lung Bases: No acute findings. Liver: Normal density. No suspicious mass. Gallbladder and biliary tract: No radiodense calculus or biliary dilation. Pancreas: Normal density. No abnormal calcifications or inflammatory process. Spleen: Normal. Kidneys: Normal size, contour and axis. Multiple right-sided stones. The largest is in the mid port ion of the kidney measuring 15 millimeters in greatest dimension. No left-sided renal calculi. Mild dilatation of the left renal collecting system but no evidence of ureteral calculi. Left renal cyst s. No suspicious masses seen. Adrenal glands: No masses seen. Lymph nodes: Within normal limits. Vasculature: Abdominal aorta non-dilated. Soft tissues: Unremarkable. Bladder: No wall thickening. No mass or calculi. Bowel: No obstruction or bowel wall thickening. Appendix normal. Mild diverticulosis. No evidence of diverticulitis. Peritoneal cavity: No ascites. No focal collection. No mesenteric inflammatory response. Reproductive organs: Prostate calcifications. Bones: Unremarkable for age. IMPRESSION: Mild dilatation of the left renal collecting system without visible obstructing stone. This has impr timur significantly compared with prior ultrasound. Right renal calculi. No right-sided hydronephrosis. RADIATION DOSE DELIVERED: 474.56mGy.cm Total DLP DATA REPOSITORY: All CT scans at this facility are submitted to the National Radiology Data Registry (NRDR) Dose Index Registry (DIR) with the [employer] (ACR). RADIATION OPTIMIZATION: All CT scans at this facility use at least one of these dose optimization te chniques: automated exposure control; mA and/or kV adjustment per patient size (includes targeted exa ms where dose is matched to clinical indication); or iterative reconstruction.
== END 2023-11-24 01:25 ==
LOC: DI 01:05
PROVIDERS: PCP Nurse Practitioner Family; Visit Provider Urology
DX: N20.0 Calculus of kidney
CPT/HCPCS: 74176

== ENCOUNTER 2023-11-26 14:17 | Outpatient (REF) | payer MEDICARE, SELFPAY ==
[2023-11-26 12:33] LABS: Bilirubin Negative (Negative); Blood Trace-intact (Negative); Clarity Clear (Clear); Glucose Negative (Negative); Ketones Negative (Negative); Leukocyte Esterase Trace (Negative); Nitrite Negative (Negative); Urobilinogen 0.2 mg/dL (Up to 0.2)
[2023-11-26 12:41] LABS: Bacteria Rare HPF (Negative); C & S Indicated? C&S Done As Ordered; Casts Negative LPF (Negative); Crystals Negative HPF (Negative); Epithelial Cells Rare HPF (Negative); Mucus Trace (Negative); RBC 0-2 HPF (0-2)
== END 2023-11-26 14:18 | disposition home or self-care (01) ==
LOC: LBO 14:17
PROVIDERS: PCP Nurse Practitioner Family; Visit Provider Urology
DX: R35.0 Frequency of micturition (principal); R39.15 Urgency of urination; R30.0 Dysuria; N20.0 Calculus of kidney
CPT/HCPCS: 81003; 81015; 87086

== ENCOUNTER → 2023-12-11 14:07 | Outpatient (BNVA) | payer MEDICARE, SELFPAY | PROVIDERS: PCP Nurse Practitioner Family; Referring Provider Nurse Practitioner Family; Visit Provider Urology | DX: N20.0 Calculus of kidney (principal) | CPT/HCPCS: 99214 ==

== ENCOUNTER → 2023-12-29 08:39 | Outpatient (BNVA) | payer MEDICARE, SELFPAY | PROVIDERS: PCP Nurse Practitioner Family; Referring Provider Nurse Practitioner Family; Visit Provider Podiatrist | DX: B35.1 Tinea unguium (principal) | CPT/HCPCS: 99213 ==

== ENCOUNTER 2024-01-21 13:41 | Outpatient (REF) | payer MEDICARE, SELFPAY ==
[2024-01-21 22:18] LABS: Anion Gap 8.3 mmol/L (3-11); BUN 21 mg/dL (7-18); CO2 28.7 mmol/L (21.0-32.0); CREATININE 1.4 mg/dL (0.70-1.30); Calcium 9.6 mg/dL (8.5-10.1); Chloride 105 mmol/L (98-107); Estimated GFR 54.41 (mL/min/1.73m2); Glucose 96 mg/dL (74-106); Potassium 4.8 mmol/L (3.5-5.1); Sodium 142 mmol/L (136-145); TSH (W/Ref FT4) 2.94 uIU/mL (0.36-3.74); Vitamin D 25 Total 65.4 ng/mL (30-100)
== END 2024-01-21 13:42 | disposition home or self-care (01) ==
LOC: NCHCN 13:41
PROVIDERS: PCP Nurse Practitioner Family; Visit Provider Nurse Practitioner Family
DX: M85.89 Other specified disorders of bone density and structure, multiple sites (principal); N18.2 Chronic kidney disease, stage 2 (mild); R42 Dizziness and giddiness
CPT/HCPCS: 80048; 82306; 84443

== ENCOUNTER → 2024-01-26 09:02 | Outpatient (BNVA) | payer MEDICARE, SELFPAY | PROVIDERS: PCP Nurse Practitioner Family; Referring Provider Nurse Practitioner Family; Visit Provider Podiatrist | DX: B35.1 Tinea unguium (principal) | CPT/HCPCS: 11755 ==

== ENCOUNTER 2024-02-02 14:00 | Outpatient (REF) | payer MEDICARE, SELFPAY ==
[2024-02-02 15:08] LABS: Bilirubin Negative (Negative); Blood Negative (Negative); Clarity Clear (Clear); Glucose Negative (Negative); Ketones Negative (Negative); Leukocyte Esterase Trace (Negative); Nitrite Negative (Negative); Urobilinogen 0.2 mg/dL (Up to 0.2); pH 6.5 (5-8)
[2024-02-02 15:32] LABS: COMMENT (LAB VIEW ONLY) 108.53 mg/dL
== END 2024-02-02 14:01 | disposition home or self-care (01) ==
LOC: NCHCN 14:00
PROVIDERS: PCP Nurse Practitioner Family; Visit Provider Nurse Practitioner Family
DX: I10 Essential (primary) hypertension (principal)
CPT/HCPCS: 81003; 82043; 82570

== ENCOUNTER → 2024-02-17 09:40 | Outpatient (BNVA) | payer MEDICARE, SELFPAY | PROVIDERS: PCP Nurse Practitioner Family; Referring Provider Nurse Practitioner Family; Visit Provider Podiatrist | DX: L60.3 Nail dystrophy (principal); B35.1 Tinea unguium; B37.7 Candidal sepsis | CPT/HCPCS: 99213 ==

== ENCOUNTER 2024-04-12 02:12 | Outpatient (CLI) | payer MEDICARE, SELFPAY ==
--- NOTE | 2024-04-12 | DI.US_ITS ---
Exam(s) US RENAL EXAM: US RENAL CLINICAL HISTORY: N20.0 Nephrolithiasis-Primary, stone former, please assess stone burden. TECHNIQUE: Hernandez scale, color and spectral Doppler were used. COMPARISON: US US RENAL from 10/08/[address] ABDOMEN PELVIS WO from 11/24/2023 FINDINGS: Renal size in cm: Right: 10.2. Left: 11.2. Echogenicity: Normal. Hydronephrosis: No. Cyst or mass: There are bilateral simple renal cysts. The largest on the left measures 2.3 x 2.1 x 2 .5 cm. It is located in the superior pole. The largest on the right measures 1.1 x 0.9 x 1.1 cm and is located in the midpole. No suspicious solid renal masses or cysts are seen. No follow-up is rec ommended. Nephrolithiasis: There are right renal stones present. The largest is in the midpole and measures 7 mm. At least 4 other discrete calculi are seen in the right kidney. There is an echogenic focus see n in the midpole of the left kidney adjacent to the large cyst measuring 4 mm. This may represent a nonobstructing stone. Other findings: None. Bladder:Normal. Ureteral jets: Right: Visualized and unremarkable. Left: Visualized and unremarkable. Prevoid vol:129 cc Postvoid vol:8 cc Prostate: 11 cc Renal color flow: Symmetric and within normal limits. IMPRESSION: Bilateral nephrolithiasis. No evidence of hydronephrosis. DATA REPOSITORY:
== END 2024-04-12 02:32 ==
LOC: DI 02:12
PROVIDERS: PCP Nurse Practitioner Family; Visit Provider Urology
DX: N20.0 Calculus of kidney (principal)
CPT/HCPCS: 76770

== ENCOUNTER 2024-05-25 08:10 | Outpatient (REF) | payer MEDICARE, SELFPAY ==
[2024-05-25 14:59] LABS: ALT 50 U/L (16-63); AST 39 U/L (15-37); Albumin 3.6 g/dL (3.4-5.0); Alkaline Phosphatase 89 U/L (46-116); Anion Gap 8.5 mmol/L (3-11); BUN 27 mg/dL (7-18); Bilirubin, Total 0.5 mg/dL (0.2-1.0); CO2 29.5 mmol/L (21.0-32.0); CREATININE 1.6 mg/dL (0.70-1.30); Calcium 9.4 mg/dL (8.5-10.1); Calculated LDL 180 mg/dL (<100); Chloride 106 mmol/L (98-107); Cholesterol 253 mg/dL (<200); Estimated GFR 46.06 (mL/min/1.73m2); Glucose 94 mg/dL (74-106); HDL Cholesterol 49 mg/dL (>or=40); Potassium 5.1 mmol/L (3.5-5.1); Sodium 144 mmol/L (136-145); Total Protein 6.6 g/dL (6.4-8.2); Triglyceride 121 mg/dL (<150)
[2024-05-26 10:00] LABS: Hepatitis C Ab w Rflx HCV PCR Negative (Negative)
== END 2024-05-25 08:11 | disposition home or self-care (01) ==
LOC: NCHCN 08:10
PROVIDERS: PCP Nurse Practitioner Family; Visit Provider Nurse Practitioner Family
DX: E78.5 Hyperlipidemia, unspecified (principal)
CPT/HCPCS: 80053; 80061; 86803

== ENCOUNTER → 2024-06-22 09:19 | Outpatient (BNVA) | payer MEDICARE, SELFPAY | PROVIDERS: PCP Nurse Practitioner Family; Referring Provider Nurse Practitioner Family; Visit Provider Podiatrist | DX: L60.3 Nail dystrophy (principal); B35.1 Tinea unguium | CPT/HCPCS: 99213 ==

== ENCOUNTER → 2024-07-25 08:52 | Outpatient (BNVA) | payer MEDICARE, SELFPAY | PROVIDERS: PCP Nurse Practitioner Family; Referring Provider Nurse Practitioner Family; Visit Provider Physician Assistant Surgical | DX: D86.9 Sarcoidosis, unspecified (principal) | CPT/HCPCS: 99215 ==

== ENCOUNTER 2024-08-02 00:56 | Outpatient (CLI) | payer MEDICARE, SELFPAY ==
--- NOTE | 2024-08-02 | DI.US_ITS ---
Exam(s) US RENAL EXAM: US RENAL CLINICAL HISTORY: NEPHROLITHIASIS N20.0 DECREASED GFR. TECHNIQUE: Hernandez scale imaging and color doppler were used. COMPARISON: CT CT ABDOMEN PELVIS WO from 11/24/2023 US US RENAL from 04/12/2024 FINDINGS: Right kidney: 9.4 x 6.2 x 5.5cm Echogenicity: Normal Hydronephrosis: No Cyst or mass: Several cysts measuring less than 1 cm. Nephrolithiasis: 5 millimeter stone upper pole. 3 millimeter stone near lower pole. 14 [address] stone in the mid pole. Left kidney: 10.6 x 5.5 x 4.6cm Echogenicity: Normal Hydronephrosis: No Cyst or mass: 2.5 centimeters cyst at the upper pole additional 1.9 centimeters cyst mid pole. Nephrolithiasis: 2 3 millimeter stones in the midportion. Bladder:Normal. Both ureteral jets were visualized. Prevoid vol:51 cc Postvoid vol:7 cc Prostate volume 6 cc. IMPRESSION: Bilateral nephrolithiasis. Bilateral renal cysts. Hydronephrosis. DATA REPOSITORY:
== END 2024-08-02 01:16 ==
LOC: DI 00:56
PROVIDERS: PCP Nurse Practitioner Family; Visit Provider Urology
DX: N20.0 Calculus of kidney (principal); N13.39 Other hydronephrosis
CPT/HCPCS: 76770

== ENCOUNTER 2024-08-19 01:22 | Outpatient (CLI) | payer MEDICARE, SELFPAY ==
[2024-08-19] MEDS: Albuterol HFA 18 GM 200 PUFF INH IH (15:11)
[2024-08-19] MEDS: Inhaler, Assist Device 1 EACH MC (15:11)
[2024-08-19] MEDS: Methacholine 100 MG VIAL IH (15:11)
--- NOTE | 2024-09-04 14:26 | W.PFT ---
Date of service: 08/19/24 Time of Service: 12:57 Pulmonary Function Test Result Indications: Sarcoidosis Interpretation Spirometry: No airflow limitation at baseline. There was no change in FEV1 with administration of 16mg/mL methacholine. Lung Volumes: Normal lung volumes Diffusion Capacity: Normal diffusion Airway Pressure: Normal airways resistance Impression Normal pulmonary function testing with a negative methacholine challenge. Clinical Correlation therefore is recommended.
== END 2024-08-19 01:23 | disposition home or self-care (01) ==
LOC: RT 01:22
PROVIDERS: PCP Nurse Practitioner Family; Visit Provider Student in an Organized Health Care Education/Training Program
DX: D86.9 Sarcoidosis, unspecified (principal)
CPT/HCPCS: 94070; 94726; 94729; 95070; J7674

== ENCOUNTER → 2024-08-30 10:11 | Outpatient (BNVA) | payer MEDICARE, SELFPAY | PROVIDERS: PCP Nurse Practitioner Family; Referring Provider Nurse Practitioner Family; Visit Provider Physician Assistant Surgical | DX: D86.9 Sarcoidosis, unspecified (principal) | CPT/HCPCS: 99214 ==

== ENCOUNTER 2025-03-07 10:00 | Outpatient (REF) | payer MEDICARE, SELFPAY ==
[2025-03-07 15:43] LABS: HCT 45.2 % (40.0-50.0); HGB 15.2 g/dL (13.5-17.5); MCH 28.8 pg (27.0-33.0); MCHC 33.6 % (32.0-36.0); MCV 86 fL (80-95); MPV 10.3 fL (8.0-11.0); Platelet Count 253 10^3/uL (130-400); RBC 5.27 10^6/uL (4.36-5.78); RDW 12.6 % (11.8-14.1); RDW-SD 39.4 fL; WBC 5.93 10^3/uL (4.4-10.8)
[2025-03-07 16:00] LABS: ALT 21 U/L (10-49); AST 20 U/L (<34); Albumin 4.0 g/dL (3.2-5.0); Alkaline Phosphatase 88 U/L (46-116); Anion Gap 7.5 mmol/L (3-11); BUN 31 mg/dL (9-23); Bilirubin, Total 0.6 mg/dL (0.2-1.2); CO2 31.5 mmol/L (20.0-31.0); Calcium 9.9 mg/dL (8.3-10.6); Chloride 103 mmol/L (98-107); Cholesterol 218 mg/dL (<200); Glucose 95 mg/dL (74-106); HDL Cholesterol 59 mg/dL (>or=40); Potassium 3.7 mmol/L (3.5-5.1); Sodium 142 mmol/L (136-145); Total Protein 6.3 g/dL (5.7-8.2)
[2025-03-07 16:09] LABS: Albumin 4.0 g/dL (3.2-5.0); Anion Gap 8.3 mmol/L (3-11); BUN 31 mg/dL (9-23); CO2 31.7 mmol/L (20.0-31.0); Calcium 10.0 mg/dL (8.3-10.6); Chloride 103 mmol/L (98-107); Glucose 95 mg/dL (74-106); Potassium 3.8 mmol/L (3.5-5.1); Sodium 143 mmol/L (136-145)
[2025-03-07 16:40] LABS: Glucose Negative (Negative)
== END 2025-03-07 10:01 | disposition home or self-care (01) ==
LOC: LBN 10:00
PROVIDERS: PCP Nurse Practitioner Family; Visit Provider Internal Medicine Nephrology
DX: N18.31 Chronic kidney disease, stage 3a (principal); I10 Essential (primary) hypertension; E78.5 Hyperlipidemia, unspecified
CPT/HCPCS: 80053; 80061; 80069; 85027; 81003; 82043; 82570